=== PATIENT | female | born 1995 | race Caucasian/White ===

== ENCOUNTER 2021-08-28 11:26 | Emergency (ER) | payer BC ==
[2021-08-28] MEDS: Take Home: Nitrofurantoin Monohydrate/Macrocrystalline 100 MG, 2 Cap Pack PO ONE (12:26)
== END 2021-08-28 12:30 | disposition home or self-care (01) ==
LOC: CC.ED 11:26 → SUPCPDRO 11:26 → MERGE 11:26 → CC.ED 12:30
DX: N39.0 Urinary tract infection, site not specified (principal)
CPT/HCPCS: 81001; 87086; 99283; 99284; A9270-GY

== ENCOUNTER 2022-10-16 19:30 | Emergency (ER) | payer BC | END 2022-10-16 19:33 | disposition left against medical advice (07) | LOC: CC.ED 19:30 | DX: Z53.21 Procedure and treatment not carried out due to patient leaving prior to being seen by health care provider (principal) ==